=== PATIENT | male | born 1950 | race Caucasian/White ===

== ENCOUNTER 2018-04-07 20:21 | Emergency (ER) | payer MEDICARE, MEDICAID ==
[~2018-04-07] VITALS: Ht 172.7 cm; Wt 64.0 kg
[2018-04-07 20:29] VITALS: BP 114/63
== END 2018-04-07 23:48 | disposition left against medical advice (07) ==
LOC: ER 20:21
DX: M54.5 Low back pain (principal); Z53.21 Procedure and treatment not carried out due to patient leaving prior to being seen by health care provider